=== PATIENT | male | born 1935 | race Caucasian/White ===

== ENCOUNTER 2017-06-28 20:04 | Observation (INO) | payer OTHER ==
--- NOTE | 2017-06-28 20:16 | EDM.PDOC ---
ED HPI GENERAL MEDICAL PROBLEM - General Chief Complaint: Gastrointestinal Problem Stated Complaint: FOOD STUCK IN THROAT Time Seen by Provider: 06/28/17 20:10 - History of Present Illness INITIAL COMMENTS - FREE TEXT/NARRATIVE: HISTORY AND PHYSICAL: History of present illness: Patient's an 81-year-old white male has a history of esophageal food bolus 2-3 prior presents with a concern of presumptive esophageal food bolus after eating chicken last night he's been unable handle saliva or any liquids since been no difficulty breathing denies chest pain nausea vomiting fever chills or any other complaints. Review of systems: As per history of present illness and below otherwise all systems reviewed and negative. Past medical history: As per history of present illness and as reviewed below otherwise noncontributory. Surgical history: As per history of present illness and as reviewed below otherwise noncontributory. Social history: No reported history of drug or alcohol abuse. Family history: As per history of present illness and as reviewed below otherwise noncontributory. Physical exam: HEENT: Atraumatic, normocephalic, pupils reactive, negative for conjunctival pallor or scleral icterus, mucous membranes moist, throat clear, neck supple, nontender, trachea midline. Lungs: Clear to auscultation, breath sounds equal bilaterally, chest nontender. Heart: S1S2, regular, negative for clicks, rubs, or JVD. Abdomen: Soft, nondistended, nontender. Negative for masses or hepatosplenomegaly. Negative for costovertebral tenderness. Pelvis: Stable nontender. Genitourinary: Deferred. Rectal: Deferred. Extremities: Atraumatic, negative for cords or calf pain. Neurovascular unremarkable. Neuro: Awake, alert, oriented. Cranial nerves II through XII unremarkable. Cerebellum unremarkable. Motor and sensory unremarkable throughout. Exam nonfocal. Diagnostics: CBC CMP EKG chest x-ray Therapeutics: Saline lock Impression: #1 esophageal food bolus Definitive disposition and diagnosis as appropriate pending reevaluation and review of above. Epigastric Pain Score (Numeric/FACES): 5 - Related Data Allergies Allergy/AdvReac Type Severity Reaction Status Date / Time No Known Allergies Allergy Verified 12/05/14 15:01 Home Meds: Home Meds Acetaminophen 325 mg PO ASDIRECTED PRN 12/05/14 [History] Albuterol Sulfate 2 puff INH ASDIRECTED 12/05/14 [History] Aspirin [Adult Low Dose Aspirin EC] 81 mg PO DAILY 12/05/14 [History] Carvedilol 3.125 mg PO BID 12/05/14 [History] Cholecalciferol (Vitamin D3) [Vitamin D3] 2,000 units PO DAILY 12/05/14 [History ] Cyanocobalamin (Vitamin B-12) [Cyanocobalamin Injection] 1,000 mcg INJECT ASDIRECTED 12/05/14 [History] Furosemide [Lasix] 40 mg PO DAILY 12/05/14 [History] Ibuprofen 400 mg PO BEDTIME 12/05/14 [History] Mometasone Furoate [Asmanex] 2 puff INH BEDTIME 12/05/14 [History] Multivitamins [Tab-A-Chelsea] 1 tab PO DAILY 12/05/14 [History] Simvastatin [Zocor] 40 mg PO DAILY 12/05/14 [History] Terazosin HCl [Terazosin] 8 mg PO BEDTIME 12/05/14 [History] Venlafaxine HCl [Venlafaxine ER] 75 mg PO BID 12/05/14 [History] Clopidogrel [Plavix] 75 mg PO DAILY 06/28/17 [History] Social & Family History - Tobacco Use Smoking Status *Q: Former Smoker Years of Tobacco use: 35 - Alcohol Use Days Per Week of Alcohol Use: 0 - Recreational Drug Use Recreational Drug Use: No ED ROS GENERAL - Review of Systems Review Of Systems: ROS reveals no pertinent complaints other than HPI. ED EXAM, GENERAL - Physical Exam Exam: See Below (See dictation) Course - Vital Signs Last Recorded V/S: Last Vital Signs Temp 36.6 C 06/28/17 21:06 Pulse 70 06/28/17 21:06 Resp 16 06/28/17 21:06 BP 152/81 H 06/28/17 21:06 Pulse Ox 95 06/28/17 21:06 - Orders/Labs/Meds Orders: Active Orders 24 hr Category Date Time Status EKG Documentation Completion [RC] STAT Care 06/28/17 20:16 Active Chest 1V Frontal [CR] Stat Exams 06/28/17 20:17 Taken Labs: Laboratory Tests 06/28/17 06/28/17 06/28/17 Range/Units 20:27 20:27 20:27 WBC 7.62 (4.0-11.0) K/uL RBC 4.47 L (4.50-5.90) M/uL Hgb 14.5 (13.0-17.0) g/dL Hct 42.2 (38.0-50.0) % MCV 94.4 (80.0-98.0) fL MCH 32.4 H (27.0-32.0) pg MCHC 34.4 (31.0-37.0) g/dL RDW Std Deviation 46.0 (28.0-62.0) fl RDW Coeff of Julianna 14 (11.0-15.0) % Plt Count 176 (150-400) K/uL MPV 10.00 (7.40-12.00) fL Neut % (Auto) 71.5 (48.0-80.0) % Lymph % (Auto) 18.5 (16.0-40.0) % [place] % (Auto) 8.9 (0.0-15.0) % Eos % (Auto) 0.7 (0.0-7.0) % Baso % (Auto) 0.4 (0.0-1.5) % Neut # (Auto) 5.5 (1.4-5.7) K/uL Lymph # (Auto) 1.4 (0.6-2.4) K/uL [place] # (Auto) 0.7 (0.0-0.8) K/uL Eos # (Auto) 0.1 (0.0-0.7) K/uL Baso # (Auto) 0.0 (0.0-0.1) K/uL INR 0.99 (0.86-1.11) Sodium 142 (136-146) mmol/L Potassium 4.2 (3.5-5.1) mmol/L Chloride 107 (98-110) mmol/L Carbon Dioxide 24 (21-31) mmol/L BUN 21 (6.0-23.0) mg/dL Creatinine 1.3 (0.6-1.5) mg/dL Est Cr Clr Drug Dosing 46.01 mL/min Estimated GFR (MDRD) 53.0 ml/min Glucose 124 H (60-110) mg/dL Calcium 9.8 (8.8-10.8) mg/dL Total Bilirubin 1.5 (0.1-1.5) mg/dL AST 19 (5-40) IU/L ALT 25 (8-54) IU/L Alkaline Phosphatase 71 (40-150) Total Protein 8.4 H (6.0-8.0) g/dL Albumin 4.8 (3.4-4.8) g/dL Globulin 3.6 H (2.0-3.5) g/dL Albumin/Globulin Ratio 1.3 (1.3-2.8) Departure - Departure Time of Disposition: 21:15 Disposition: Refer to Observation Condition: Good Clinical Impression: Odynophagia, Coronary artery disease - Discharge Information - My Orders Last 24 Hours: My Active Orders 06/28/17 20:16 EKG Documentation Completion [RC] STAT 06/28/17 20:17 Chest 1V Frontal [CR] Stat - Assessment/Plan Last 24 Hours: My Active Orders 06/28/17 20:16 EKG Documentation Completion [RC] STAT 06/28/17 20:17 Chest 1V Frontal [CR] Stat
[2017-06-28] MEDS ORDERED: Clopidogrel 75 MG Tab PO SCH (22:21)
[2017-06-28] MEDS: Carvedilol 6.25 MG Tab PO SCH (22:29)
--- NOTE | 2017-06-29 01:29 | HP ---
DATE OF : 1935 PRIMARY CARE PHYSICIAN: None PCP Consult was called in shortly after concerning question of food stuck in the throat. HISTORY OF PRESENT ILLNESS: The patient is an 81-year-old gentleman, who has a history of esophageal stricture requiring dilatation several times. He now presented to the emergency room with another episode of 24-hour history of a piece of chicken stuck in the throat. The patient feels that the chicken is stuck in the epigastrium area and feeling a lot of discomfort. Denied chest pain, denies shortness of breath, and denied syncope. The patient was brought to the emergency room by friends. The patient remarked that he cannot drink his own saliva and nothing goes in. PAST MEDICAL HISTORY: Significant for no diabetes, OH, CVA, or hypertension. The patient does have a coronary artery disease that required cardiac stent placed only 6 days ago in [place], and currently the patient is on aspirin and Plavix. REVIEW OF SYSTEMS: Same as history of present illness. FAMILY HISTORY: Noncontributory. ALLERGIES: Please refer nursing note for details. MEDICATIONS: Please refer nursing note for details. PHYSICAL EXAMINATION: GENERAL: This is a very pleasant gentleman in no acute distress and smiled to the doctor and very comfortably lying on stretcher. HEENT: Normocephalic, atraumatic. Sclerae anicteric. LUNGS: Clear to auscultation. HEART: Regular rate and rhythm. ABDOMEN: Soft, nondistended. No pulsating tender midline abdominal structure. No epigastric pain. ASSESSMENT AND PLAN: Food stuck in the throat and would benefit from EGD for foreign body extraction. However, the patient is on 81 mg aspirin and Plavix together and 6 days from cardiac stent placement. The patient is at very high risk for bleeding if it happened and even after it happens, there may be not a good option to stop the anticoagulation as the stent is freshly placed, less than 6 days. It is a dilemma to proceed with the procedure risking bleeding and if bleeding, we do not have any solution. I presented the patient a glass of water, 300 mL glass of water, the patient finished without a problem and the patient also remarked that he feels that the food stuck has passed through. It is good that we probably do not have to holcomb to do gastroscopy on him on risk of bleeding. We are going to keep him overnight on observation and if all doing well in the morning, he will be discharged. As always, thank you Dr. Alanis for the referral. ALMA ROSA BRANDON /[id number] MTDD
[2017-06-29] MEDS: Carvedilol 6.25 MG Tab PO SCH (08:52)
[2017-06-29 08:55] VITALS: BP 122/66
[2017-06-29] MEDS ORDERED: Venlafaxine 75 MG Cap.ER PO SCH (09:00)
[2017-06-29] MEDS ORDERED: Cholecalciferol (Vitamin D3) 1,000 Unit Tab PO SCH (09:00)
[2017-06-29] MEDS ORDERED: Terazosin 1 MG Cap PO SCH ×2 (09:00→21:00)
[2017-06-29] MEDS ORDERED: Aspirin 81 MG Tab.EC PO SCH (09:00)
[2017-06-29] MEDS ORDERED: Multivitamin Tab PO SCH (09:00)
[2017-06-29] MEDS ORDERED: Furosemide 40 MG Tab PO SCH (09:00)
[2017-06-29] MEDS ORDERED: Simvastatin 40 MG Tab PO SCH (09:00)
--- NOTE | 2017-06-29 13:34 | CR ---
EXAM DATE: 06/28/17 PATIENT'S AGE: 81 Patient: PGE GANNON Facility: [place], [place] Site . Site : 1935 Study: XRay Chest [id number]/16/2017 8:48:52 PM Ordering Physician: Annabelle Connolly Final Report: Indication: Food stuck in throat Technique: Chest 1 view Comparison: 02/09/2013. Findings/Impression: Cardiovascular and mediastinum: Stable cardiomediastinal silhouette. Sternotomy sutures. Lungs and pleural space: No consolidation. A left midlung granuloma again seen. No pleural effusions. Bones and soft tissues: No significant change. Dictated by Kermit Noriega MD @ 06/28/2017 9:10:34 PM Dictated by: Kermit Noriega MD @ 06/28/2017 21:10:41 (Electronic Signature) Report Signed by Proxy. [facility]
[2017-06-29] MEDS ORDERED: Terazosin 5 MG Cap PO SCH (21:00)
[2017-06-29] MEDS ORDERED: Clopidogrel 75 MG Tab PO SCH (21:00)
[2017-06-29] MEDS ORDERED: Ibuprofen 400 MG Tab PO SCH (21:00)
[2017-06-29] MEDS ORDERED: MOMETASONE FUROATE INH SCH (21:00)
== END 2017-06-29 10:04 | disposition home or self-care (01) ==
LOC: MW.ED 20:04 → MW.SDS 21:10 → MW.MS 21:19 → UNDOADMOB 21:19 → MW.MS 21:24
PROVIDERS: ADMIT Surgery; ATTEND Surgery
DX: T17.228A Food in pharynx causing other injury, initial encounter (principal); I25.10 Atherosclerotic heart disease of native coronary artery without angina pectoris; Z95.5 Presence of coronary angioplasty implant and graft; Z79.02 Long term (current) use of antithrombotics/antiplatelets; Z79.82 Long term (current) use of aspirin; Z87.891 Personal history of nicotine dependence
CPT/HCPCS: 36415; 71010; 80053; 85025; 85610; 93005; 99285; A9270; G0378; 99284